=== PATIENT | female | born 1960 | race Hispanic/Latino ===

== ENCOUNTER 2019-06-03 17:37 | Emergency (ER) | payer SELFPAY ==
[2019-06-03 17:57] LABS: BASOPHILS % (AUTO) 0.7 % (0.0-5.0); EOSINOPHILS % (AUTO) 1.7 % (0.0-8.0); HEMATOCRIT 37.5 % (36-48); LYMPHOCYTES % (AUTO) 49.1 % (21.0-51.0); MEAN CORPUSCULAR HEMOGLOBIN 30.3 pg (27.0-33.0); MEAN CORPUSCULAR HGB CONC 33.5 g/dL (32.0-36.0); MEAN CORPUSCULAR VOLUME 90.5 fL (79-99); MONOCYTES % (AUTO) 5.5 % (3.0-13.0); PLATELET COUNT (AUTO) 231 K/uL (130-400); RED BLOOD CELL COUNT(AUTO) 4.14 MIL/uL (4.00-5.50); RED CELL DISTRIBUTION WIDTH 14.3 % (11.0-15.5); WHITE BLOOD COUNT (AUTO) 9.9 K/uL (4.8-10.8)
[2019-06-03 18:09] LABS: INR 1.05 (0.85-1.15); PARTIAL THROMBOPLASTIN TIME 28.8 SEC (26.3-35.5)
[2019-06-03 18:13] LABS: CREATININE 0.8 mg/dL (0.5-1.5); POTASSIUM 3.6 mmol/L (3.5-5.1)
[2019-06-03 18:19] LABS: ALBUMIN 3.7 g/dL (3.5-5.0); B-TYPE NATRIURETIC PEPTIDE 15 pg/mL (0-100); BILIRUBIN,TOTAL 0.3 mg/dL (0.2-1.0); TOTAL PROTEIN, SERUM 7.9 g/dL (6.0-8.3)
[2019-06-03] MEDS ORDERED: KETOROLAC TROMETHAMINE 15MG/ML ONE (18:20)
[2019-06-03] MEDS ORDERED: SODIUM CHLORIDE 0.9% 1000ML 1,000 ML IV ONE (18:22)
[2019-06-03] MEDS ORDERED: DiphenhydrAMINE HCL 50 MG/ML VIAL ONE (18:34)
== END 2019-06-03 20:55 | disposition home or self-care (01) ==
LOC: EDH 17:37
DX: R06.00 Dyspnea, unspecified (principal); R51 Headache; R07.89 Other chest pain; R11.0 Nausea; I10 Essential (primary) hypertension; Z98.51 Tubal ligation status; Z79.899 Other long term (current) drug therapy
CPT/HCPCS: 36415; 71045; 80053; 82550; 83880; 84484; 85025; 85610; 85730; 93005; 96374; 96375; 99285; J1200; J1885; J7030

== ENCOUNTER 2022-02-05 13:45 | Inpatient (IN) | payer OTHER ==
[~2022-02-05] VITALS: Ht 170.2 cm; Wt 89.7 kg
[2022-02-05 14:06] LABS: BASOPHILS % (AUTO) 0.5 % (0.0-5.0); EOSINOPHILS % (AUTO) 1.6 % (0.0-8.0); HEMATOCRIT 35.5 % (36-48); LYMPHOCYTES % (AUTO) 34.3 % (21.0-51.0); MEAN CORPUSCULAR HEMOGLOBIN 28.7 pg (27.0-33.0); MEAN CORPUSCULAR HGB CONC 31.5 g/dL (32.0-36.0); MONOCYTES % (AUTO) 3.9 % (3.0-13.0); NEUTROPHILS % (AUTO) 59.2 % (40.0-77.0); PLATELET COUNT (AUTO) 275 K/uL (130-400); RED CELL DISTRIBUTION WIDTH 14.8 % (11.0-15.5); WHITE BLOOD COUNT (AUTO) 12.2 K/uL (4.8-10.8)
[2022-02-05 14:21] LABS: CREATININE 0.8 mg/dL (0.5-1.5); POTASSIUM 3.5 mmol/L (3.5-5.1)
[2022-02-05 14:27] LABS: ALBUMIN 2.9 g/dL (3.5-5.0); BILIRUBIN,TOTAL 0.2 mg/dL (0.2-1.0); TOTAL PROTEIN, SERUM 6.9 g/dL (6.0-8.3)
[2022-02-05] MEDS ORDERED: NITROGLYCERIN 0.4 MG SL TAB SL ONE (14:35)
[2022-02-05 14:37] LABS: B-TYPE NATRIURETIC PEPTIDE 109 pg/mL (0-100)
[2022-02-05] MEDS: NITROGLYCERIN 0.4 MG SL TAB SL PRN (15:35)
[2022-02-05] MEDS ORDERED: CLOPIDOGREL 300MG TAB PO ONE (17:00)
[2022-02-05] MEDS ORDERED: HEPARIN 25,000 UNITS/250ML D5W 250 ML IV PRN (17:30)
[2022-02-05] MEDS ORDERED: 0.9% NACL 500ML IV.SOLN 500 ML IV SCH (17:30)
[2022-02-05] MEDS ORDERED: HEPARIN 5,000 UNIT VIAL IV SCH (17:30)
[2022-02-05 17:33] LABS: INR 0.94 (0.85-1.15); PROTHROMBIN TIME 10.3 SEC (9.6-11.6)
[2022-02-05 17:34] LABS: PARTIAL THROMBOPLASTIN TIME 23.9 SEC (26.3-35.5)
[2022-02-05] MEDS ORDERED: MORPHINE 2 MG SYG IVP PRN (18:00)
[2022-02-05] MEDS ORDERED: PANTOPRAZOLE 40 MG TAB DR PO SCH (18:00)
[2022-02-05] MEDS ORDERED: ACETAMINOPHEN 325 MG TAB PO PRN (18:00)
[2022-02-05] MEDS ORDERED: LOSA1TAB37 PO (18:16)
[2022-02-05 18:41] LABS: HEMOGLOBIN A1C 7.6 % (4.0-6.0)
[2022-02-05 18:50] LABS: INR 0.95 (0.85-1.15); PROTHROMBIN TIME 10.4 SEC (9.6-11.6)
[2022-02-05 18:52] LABS: PARTIAL THROMBOPLASTIN TIME 23.6 SEC (26.3-35.5)
[2022-02-05 18:52] LABS: THYROID STIMULATING HORMONE 3.57 uIU/mL (0.36-3.74)
[2022-02-05 20:09] LABS: APPEARANCE,URINE Clear (CLEAR); BILIRUBIN,URINE Negative (NEGATIVE); COLOR,URINE Yellow (YELLOW); GLUCOSE, URINE (UA) Negative (NEGATIVE); KETONES,URINE Negative (NEGATIVE); LEUKOCYTE ESTERASE ,URINE Small (NEGATIVE); NITRATE,URINE Negative (NEGATIVE); OCCULT BLOOD,URINE Negative (NEGATIVE); PROTEIN,URINE Negative (NEGATIVE); UROBILINOGEN,URINE 0.2 mg/dL (0.2-1.0)
[2022-02-05 20:17] LABS: AMPHET/METH SCREEN,URINE NEGATIVE (NEGATIVE); BARBITURATE SCREEN, URINE NEGATIVE (NEGATIVE); BENZODIAZEPINES SCREEN,URINE NEGATIVE (NEGATIVE); CANNABINOID SCREEN,URINE NEGATIVE (NEGATIVE); COCAINE SCREEN,URINE NEGATIVE (NEGATIVE); OPIATE SCREEN,URINE NEGATIVE (NEGATIVE); PHENCYCLIDINE SCREEN,URINE NEGATIVE (NEGATIVE)
[2022-02-05 20:18] LABS: BACTERIA,URINE Rare /HPF (None Seen); MUCUS,URINE Few LPF (None Seen); RBC,URINE 0-1 /HPF (0-1); SQUAMOUS EPITHELIAL CELL,UR Moderate /HPF (0-2)
[2022-02-05] MEDS ORDERED: NITROGLYCERIN 1GM OINT 1 INCH/1GM TD ONE (21:00)
[2022-02-05] MEDS: ATORVASTATIN 40 MG TABLET PO SCH (21:23)
[2022-02-05] MEDS: METOPROLOL TARTRATE 25 MG TAB PO SCH (21:23)
[2022-02-05] MEDS: INSULIN HUMULIN R 100 UNIT/ML 3ML SQ SCH (21:23)
[2022-02-05 23:45] VITALS: BP 118/66
[2022-02-06] VITALS (14 sets, daily range): BP systolic 108–140; BP diastolic 57–96
[2022-02-06 02:57] LABS: BASOPHILS % (AUTO) 0.5 % (0.0-5.0); EOSINOPHILS % (AUTO) 2.1 % (0.0-8.0); HEMATOCRIT 34.9 % (36-48); LYMPHOCYTES % (AUTO) 39.7 % (21.0-51.0); MEAN CORPUSCULAR HEMOGLOBIN 29.7 pg (27.0-33.0); MEAN CORPUSCULAR HGB CONC 32.4 g/dL (32.0-36.0); MEAN CORPUSCULAR VOLUME 91.6 fL (79-99); NEUTROPHILS % (AUTO) 53.5 % (40.0-77.0); PLATELET COUNT (AUTO) 257 K/uL (130-400); RED BLOOD CELL COUNT(AUTO) 3.81 MIL/uL (4.00-5.50); RED CELL DISTRIBUTION WIDTH 14.8 % (11.0-15.5); WHITE BLOOD COUNT (AUTO) 12.4 K/uL (4.8-10.8)
[2022-02-06 03:06] LABS: PROTHROMBIN TIME 10.9 SEC (9.6-11.6)
[2022-02-06 03:07] LABS: PARTIAL THROMBOPLASTIN TIME 51.1 SEC (26.3-35.5)
[2022-02-06 03:11] LABS: ALBUMIN 2.7 g/dL (3.5-5.0); BILIRUBIN,TOTAL 0.4 mg/dL (0.2-1.0); CREATININE 0.6 mg/dL (0.5-1.5); HEMOGLOBIN A1C 7.2 % (4.0-6.0); MAGNESIUM 1.8 mg/dL (1.80-2.40); POTASSIUM 3.8 mmol/L (3.5-5.1); TOTAL PROTEIN, SERUM 6.4 g/dL (6.0-8.3)
[2022-02-06] MEDS: INSULIN HUMULIN R 100 UNIT/ML 3ML SQ SCH ×4 (06:07→20:51)
[2022-02-06] MEDS ORDERED: HEPARIN 10,000 UNIT/10ML (1,000 UNIT/ML) VIAL ONE (07:14)
[2022-02-06] MEDS ORDERED: NITROGLYCERIN 50MG VIAL ONE (07:14)
[2022-02-06] MEDS ORDERED: NICARDIPINE 25MG INJ IV ONE (07:14)
[2022-02-06] MEDS ORDERED: IOHEXOL 350 MG/ML 100ML INFUS..BTL IV ONE (07:14)
[2022-02-06] MEDS ORDERED: IOHEXOL-350 50ML VIAL IV ONE (07:15)
[2022-02-06] MEDS ORDERED: IOHEXOL-350 75 ML VIAL IV ONE ×2 (07:15→19:29)
[2022-02-06] MEDS ORDERED: LIDOCAINE HCL 400MG/20ML VIAL ONE (07:15)
[2022-02-06] MEDS ORDERED: ZINC220T4 PO ×2 (07:25)
[2022-02-06] MEDS ORDERED: METF-445 PO ×2 (07:25)
[2022-02-06] MEDS ORDERED: BIVALIRUDIN 250 MG/VIAL IV ONE (07:31)
[2022-02-06] MEDS ORDERED: FENTANYL CITRATE PF 50 MCG/1 ML 2ML VIAL ONE (07:34)
[2022-02-06] MEDS ORDERED: MIDAZOLAM HCL 1 MG/ML 2ML VIAL ONE (07:34)
[2022-02-06] MEDS: METOPROLOL TARTRATE 25 MG TAB PO SCH ×2 (09:00→20:52)
[2022-02-06] MEDS ORDERED: 0.9%NACL 1000ML 1,000 ML IV SCH (09:00)
[2022-02-06] MEDS: ASPIRIN 81MG CHEW TAB PO SCH (09:49)
[2022-02-06] MEDS: CLOPIDOGREL 75MG TAB PO SCH (09:49)
[2022-02-06] MEDS: PANTOPRAZOLE 40 MG TAB DR PO SCH (09:50)
[2022-02-06 10:31] LABS: INR 0.99 (0.85-1.15); PROTHROMBIN TIME 10.8 SEC (9.6-11.6)
[2022-02-06 10:32] LABS: PARTIAL THROMBOPLASTIN TIME 26.2 SEC (26.3-35.5)
[2022-02-06] MEDS: NITROGLYCERIN 0.4 MG SL TAB SL PRN ×2 (17:52→17:59)
[2022-02-06] MEDS: ATORVASTATIN 40 MG TABLET PO SCH (20:52)
[2022-02-07 04:00] VITALS: BP 116/84
[2022-02-07 04:05] LABS: MEAN CORPUSCULAR HEMOGLOBIN 28.6 pg (27.0-33.0); MEAN CORPUSCULAR HGB CONC 30.8 g/dL (32.0-36.0); MEAN CORPUSCULAR VOLUME 92.8 fL (79-99); PLATELET COUNT (AUTO) 248 K/uL (130-400); RED BLOOD CELL COUNT(AUTO) 3.88 MIL/uL (4.00-5.50); RED CELL DISTRIBUTION WIDTH 14.9 % (11.0-15.5); WHITE BLOOD COUNT (AUTO) 11.7 K/uL (4.8-10.8)
[2022-02-07 04:11] LABS: CREATININE 0.8 mg/dL (0.5-1.5); POTASSIUM 4.2 mmol/L (3.5-5.1)
[2022-02-07] MEDS: INSULIN HUMULIN R 100 UNIT/ML 3ML SQ SCH ×4 (06:25→21:00)
[2022-02-07 08:00] VITALS: BP 139/75
[2022-02-07] MEDS: PANTOPRAZOLE 40 MG TAB DR PO SCH (08:39)
[2022-02-07] MEDS: CLOPIDOGREL 75MG TAB PO SCH (08:39)
[2022-02-07] MEDS: ASPIRIN 81MG CHEW TAB PO SCH (08:40)
[2022-02-07] MEDS: METOPROLOL TARTRATE 25 MG TAB PO SCH ×3 (09:00→21:00)
[2022-02-07] MEDS ORDERED: ISOSORBIDE MONONITRATE 20 MG TABLET PO SCH (09:00)
[2022-02-07] MEDS ORDERED: METO25 PO ×2 (09:13)
[2022-02-07] MEDS ORDERED: LIRA0.6P2 SQ ×2 (09:13)
[2022-02-07] MEDS ORDERED: CLOP75TA14 PO ×2 (09:13)
[2022-02-07] MEDS ORDERED: ASPI-1005 PO ×2 (09:13)
[2022-02-07] MEDS ORDERED: ATOR40TA69 PO ×2 (09:13)
[2022-02-07] MEDS ORDERED: LISI2.5T13 PO ×2 (09:13)
[2022-02-07] MEDS: ISOSORBIDE MONONITRATE 20 MG TABLET PO SCH (10:53)
[2022-02-07 12:00] VITALS: BP 134/81
[2022-02-07 16:00] VITALS: BP 131/76
[2022-02-07 19:12] VITALS: BP 132/73
[2022-02-07 19:34] VITALS: BP 108/54
[2022-02-07] MEDS: ATORVASTATIN 40 MG TABLET PO SCH (22:28)
[2022-02-08] VITALS: BP 122/61
[2022-02-08 04:00] VITALS: BP 128/82
[2022-02-08] MEDS: INSULIN HUMULIN R 100 UNIT/ML 3ML SQ SCH (06:28)
[2022-02-08 08:00] VITALS: BP 132/78
[2022-02-08 09:19] VITALS: BP 130/76
[2022-02-08] MEDS: PANTOPRAZOLE 40 MG TAB DR PO SCH (09:21)
[2022-02-08] MEDS: METOPROLOL TARTRATE 25 MG TAB PO SCH (09:21)
[2022-02-08] MEDS: CLOPIDOGREL 75MG TAB PO SCH (09:21)
[2022-02-08] MEDS: ISOSORBIDE MONONITRATE 20 MG TABLET PO SCH (09:21)
[2022-02-08] MEDS: ASPIRIN 81MG CHEW TAB PO SCH (09:21)
== END 2022-02-08 11:05 | disposition home or self-care (01) | DRG 280 ==
LOC: EDH 13:45 → EDBD 13:45 → EDHIP 17:50 → 2DH 22:15
PROVIDERS: ADMIT Internal Medicine; ATTEND Internal Medicine
PROC: 4A023N7 Measurement of Cardiac Sampling and Pressure, Left Heart, Percutaneous Approach (ICD-10-PCS; principal; 2022-02-06)
PROC: B2111ZZ Fluoroscopy of Multiple Coronary Arteries using Low Osmolar Contrast (ICD-10-PCS; 2022-02-06)
PROC: B2151ZZ Fluoroscopy of Left Heart using Low Osmolar Contrast (ICD-10-PCS; 2022-02-06)
PROC: B41F1ZZ Fluoroscopy of Right Lower Extremity Arteries using Low Osmolar Contrast (ICD-10-PCS; 2022-02-06)
DX: I21.4 Non-ST elevation (NSTEMI) myocardial infarction (principal); I50.31 Acute diastolic (congestive) heart failure; J98.11 Atelectasis; E66.9 Obesity, unspecified; E11.9 Type 2 diabetes mellitus without complications; I10 Essential (primary) hypertension; Z68.31 Body mass index [BMI] 31.0-31.9, adult; Z83.3 Family history of diabetes mellitus; Z90.710 Acquired absence of both cervix and uterus; M19.90 Unspecified osteoarthritis, unspecified site; E78.5 Hyperlipidemia, unspecified; I25.10 Atherosclerotic heart disease of native coronary artery without angina pectoris; D64.9 Anemia, unspecified; D72.829 Elevated white blood cell count, unspecified
CPT/HCPCS: 36415; 71045; 71046; 71275; 80048; 80053; 80061; 80305; 81001; 81241; 82550; 82948; 83036; 83735; 83874; 83880; 84145; 84443; 84484; 85025; 85027; 85210; 85240; 85300; 85303; 85306; 85347; 85378; 85610; 85651; 85730; 85732; 86140; 86147; 93005; 93306; 93458; 99156; 99157; 99291; C1760; C1894; G0378; J0583; J1644; J1815; J2250; J3010; J3490; Q9967

== ENCOUNTER 2022-02-13 14:30 | Emergency (ER) | payer OTHER ==
[~2022-02-13] VITALS: Ht 170.2 cm; Wt 89.4 kg
[~2022-02-13 14:30] MED LIST: ASPI-1005 PO; ATOR40TA69 PO; CLOP75TA14 PO; LIRA0.6P2 SQ; LISI2.5T13 PO; LOSA1TAB37 PO; METF-445 PO; METO25 PO; ZINC220T4 PO
[2022-02-13] MEDS ORDERED: LORAZEPAM 1 MG TABLET PO ONE (15:00)
[2022-02-13 15:31] LABS: BASOPHILS % (AUTO) 0.5 % (0.0-5.0); HEMATOCRIT 36.9 % (36-48); LYMPHOCYTES % (AUTO) 30.3 % (21.0-51.0); MEAN CORPUSCULAR HEMOGLOBIN 29.6 pg (27.0-33.0); MEAN CORPUSCULAR HGB CONC 32.2 g/dL (32.0-36.0); MEAN CORPUSCULAR VOLUME 91.8 fL (79-99); MONOCYTES % (AUTO) 5.1 % (3.0-13.0); NEUTROPHILS % (AUTO) 61.8 % (40.0-77.0); PLATELET COUNT (AUTO) 272 K/uL (130-400); RED BLOOD CELL COUNT(AUTO) 4.02 MIL/uL (4.00-5.50); RED CELL DISTRIBUTION WIDTH 14.4 % (11.0-15.5); WHITE BLOOD COUNT (AUTO) 13.2 K/uL (4.8-10.8)
[2022-02-13 15:32] LABS: APPEARANCE,URINE Clear (CLEAR); BILIRUBIN,URINE Negative (NEGATIVE); COLOR,URINE Yellow (YELLOW); GLUCOSE, URINE (UA) Negative (NEGATIVE); KETONES,URINE Negative (NEGATIVE); LEUKOCYTE ESTERASE ,URINE Small (NEGATIVE); NITRATE,URINE Negative (NEGATIVE); OCCULT BLOOD,URINE Negative (NEGATIVE); PROTEIN,URINE Negative (NEGATIVE); UROBILINOGEN,URINE 0.2 mg/dL (0.2-1.0)
[2022-02-13 15:40] LABS: CREATININE 0.7 mg/dL (0.5-1.5); POTASSIUM 3.7 mmol/L (3.5-5.1)
[2022-02-13 15:42] LABS: BACTERIA,URINE Rare /HPF (None Seen); RBC,URINE 0-1 /HPF (0-1); SQUAMOUS EPITHELIAL CELL,UR Few /HPF (0-2)
[2022-02-13 15:45] LABS: ALBUMIN 3.1 g/dL (3.5-5.0); BILIRUBIN,TOTAL 0.3 mg/dL (0.2-1.0); TOTAL PROTEIN, SERUM 7.4 g/dL (6.0-8.3)
[2022-02-13] MEDS ORDERED: CEPH500B PO (16:00)
[2022-02-13] MEDS ORDERED: CEFTRIAXONE 1G VIAL IM ONE (16:00)
[2022-02-13] MEDS ORDERED: HYDR-3421 PO (16:00)
[2022-02-13 16:22] VITALS: BP 127/74
== END 2022-02-13 16:50 | disposition home or self-care (01) ==
LOC: EDH 14:30
DX: R00.2 Palpitations (principal); N39.0 Urinary tract infection, site not specified; I11.0 Hypertensive heart disease with heart failure; F41.9 Anxiety disorder, unspecified; E66.9 Obesity, unspecified; E78.00 Pure hypercholesterolemia, unspecified; E11.9 Type 2 diabetes mellitus without complications
CPT/HCPCS: 36415; 71045; 80053; 81001; 84484; 85025; 93005 ×2; 96372; 99285; J0696